=== PATIENT | female | born 1985 | race Caucasian/White ===

== ENCOUNTER 2023-06-15 12:12 | Emergency (ER) | payer BC, SELFPAY ==
--- NOTE | ~2023-06-15 | XR_ITS ---
EXAMINATION: XR knee LT min 4V DATE: 06/15/2023 12:44 INDICATION: Medial left knee pain post injury 2 days prior TECHNIQUE: Anteroposterior, 2 oblique and crosstable lateral views of the left knee were obtained COMPARISON: None. FINDINGS: Alignment is normal. No fracture. Joint spaces appear normal on nonweightbearing imaging. No joint e ffusion/layering lipohemarthrosis. Soft tissues are unremarkable. IMPRESSION: 1. Negative left knee radiographs. Reviewed, dictated and finalized at location A. [facility]
[2023-06-15 12:14] VITALS: BP 144/92; PULSE 98; RESP 19; TEMP 36.4; O2SAT 100
--- NOTE | 2023-06-15 12:16 | ED.GENADULT ---
HPI - General Adult General Chief complaint: Extremity Injury, Lower Stated complaint: L KNEE PAIN Time Seen by Provider: 06/15/23 12:15 History of Present Illness HPI narrative: this is a 38-year-old female presenting ED with chief complaint of acute on chronic knee pain. Patient has been having knee pain for the last 4 months. Last night she slipped on some water and re-injured her left knee. She feels like she has pain on the inside of her knee. She is able to bear weight and was able to walk in the emergency department. No other injuries. She has taken Motrin for pain Related Data Allergies Allergy/AdvReac Type Severity Reaction Status Date / Time No Known Drug Allergies Allergy Unknown Verified 03/28/14 16:16 Exam Narrative: APPEARANCE: No apparent distress. Head: atraumatic. EYES: EOMI, NOSE: Atraumatic NECK: Trachea midline RESPIRATORY: No increased rate of breathing CARDIOVASCULAR: RRR, ABDOMINAL: Non-distended MUSCULOSKELETAl: focal exam of the left knee revealed no obvious swelling. No overlying bruising. No joint laxity. Patient is able. Foot is warm pulses refill. Sensation intact. NEURO: Alert. Moving 4/4 extremities SKIN:: Warm, dry. Normal color PSYCHIATRIC: Normal affect Course Vital Signs Vital signs: Vital Signs Temperature 97.6 F 06/15/23 12:14 Pulse Rate 98 06/15/23 12:14 Respiratory Rate 19 06/15/23 12:14 Blood Pressure 144/92 H 06/15/23 12:14 Pulse Oximetry 100 06/15/23 12:14 Oxygen Delivery Room Air 06/15/23 12:14 Temperature 97.6 F 06/15/23 12:14 Pulse Rate 98 06/15/23 12:14 Respiratory Rate 06/15/23 12:14 Blood Pressure 144/92 H 06/15/23 12:14 Pulse Oximetry 100 06/15/23 12:14 Oxygen Delivery Room Air 06/15/23 12:14 Medical Decision Making [facility] Narrative Medical decision making narrative: -Course: 38-year-old female presenting acute on knee pain. X-rays negative for acute fracture. Patient discharged with orthopedic follow-up. 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 lives with her children -Independent interpretation of studies: x-rays negative for fracture -Interventions: Tylenol -Shared decision making / Disposition:discharged -RX Motrin Tylenol Vital Signs Vital Signs: Vital Signs Temperature 97.6 F 06/15/23 12:14 Pulse Rate 98 06/15/23 12:14 Respiratory Rate 19 06/15/23 12:14 Blood Pressure 144/92 H 06/15/23 12:14 Pulse Oximetry 100 06/15/23 12:14 Oxygen Delivery Room Air 06/15/23 12:14 Temperature 97.6 F 06/15/23 12:14 Pulse Rate 98 06/15/23 12:14 Respiratory Rate 19 06/15/23 12:14 Blood Pressure 144/92 H 06/15/23 12:14 Pulse Oximetry 100 06/15/23 12:14 Oxygen Delivery Room Air 06/15/23 12:14 Discharge Plan Discharge Clinical Impression: Acute knee pain Patient Disposition: Home, Self-Care Condition: Stable Instructions: Antibiotic Form, Knee Pain (ED) Additional Instructions: please take Motrin Tylenol for pain. Please follow-up with orthopedics for further management. Return if you develop severe pain, are unable to move your leg, or unable to walk. Follow-up/Referrals: Eros Larsen MD [Physician] - 1 Week (Knee pain) UNKNOWN,DOCTOR [Primary Care Provider] -
[2023-06-15] MEDS: ACETAMINOPHEN 500 MG TABLET 1000 MG PO (12:26)
[2023-06-15 13:34] VITALS: BP 124/85; PULSE 98; RESP 20; O2SAT 97
--- NOTE | 2023-06-15 13:40 | PC.NURSE ---
On 06/15/23, the student, Ree Gamez, provided care and completed [facility] documentation on this patient. I have reviewed the student's documentation and agree with the findings.
[2023-06-15 13:47] VITALS: BP 124/85; PULSE 98; RESP 20; TEMP 36.4; O2SAT 97
== END 2023-06-15 13:47 | disposition home or self-care (01) ==
PROVIDERS: Emergency Provider Emergency Medicine
DX: M25.562 Pain in left knee (principal); W01.0XXA Fall on same level from slipping, tripping and stumbling without subsequent striking against object, initial encounter
CPT/HCPCS: 73564; 99283